=== PATIENT | male | born 1980 | race Caucasian/White ===

== ENCOUNTER 2016-09-16 08:24 | Emergency (ER) | payer MEDICAID, OTHER ==
[~2016-09-16 08:24] MED LIST: PERC5TAB8 PO; SOMA350T OR
[2016-09-16] MEDS ORDERED: SUCRALFATE 1 GM TAB As Ordered ONE (09:22)
[2016-09-16] MEDS ORDERED: METOCLOPRAMIDE INJ 10MG/2ML VIAL (J2765) As Ordered ONE (09:22)
[2016-09-16] MEDS ORDERED: PANTOPRAZOLE 40MG INJ (PROTONIX) (C9113) As Ordered ONE (09:22)
[2016-09-16] MEDS ORDERED: ONDANSETRON 4MG/2ML VIAL (J2405) As Ordered ONE (09:22)
[2016-09-16] MEDS ORDERED: KETOROLAC 30 MG/ML VIAL (J1885) As Ordered ONE (09:22)
--- NOTE | 2016-09-16 11:23 | EDDOCDS ---
Nurse's Notes [facility] Name: José Oliva Age: 36 yrs Sex: Male : 1980 Arrival Date: 09/16/2016 Time: 08:24 Bed 11 Private MD: Diagnosis: Poisoning by heroin, accidental (unintentional) Presentation: 09/16 08:26 Presenting complaint: EMS states: PD found pt blue and girlfriend attempting to arouse pml pt without effect. EMS found agonal respirations and give 0.8 narcan IVP with positive effect. pt became agitated and combative following narcan administration and PD restrained pt in handcuffs. pt not under police custody. pt admits to use of heroin and "speed" - cocaine and some other substance. Adult Sepsis Screening: The patient does not have new or worsening altered mentation. Patient's respiratory rate is less than 22. Systolic blood pressure is greater than 100. Patient has a qSOFA score of 0- Negative Sepsis Screen. Suicide/Homicide risk assessment- the patient denies having any suicidal and/or homicidal ideations and does not present with any other emotional, behavioral or mental health complaints. Status: Patient is not a septic tank servicer or dependent. Transition of care: patient was not received from another setting of care. 08:26 Acuity: JEREMY Level 3 pml 08:26 Method Of Arrival: Ambulance pml Triage Assessment: 08:33 General: Appears ill, Behavior is appropriate for age, cooperative. Pain: Denies pain. pml HIV screening NA for this visit Offered previously. The patient is triaged at the bedside. See Assessment in Nurses Notes section of ED record. Neurological: Level of Consciousness is awake, alert, Oriented to person, place, time. Cardiovascular: Capillary refill < 3 seconds. Respiratory: Airway is patent Respiratory effort is even, unlabored. GI: Abdomen is non- distended Pt is actively vomiting bile, Abd is soft X 4 quads Reports indigestion. Derm: Skin is diaphoretic, Skin is pale, Skin temperature is warm. Historical: - Allergies: no known allergies; - Home Meds: 1. none - PMHx: none; - PSHx: Tonsillectomy; back surgery; - Social history: Smoking status: Patient uses tobacco products, light tobacco smoker. Patient uses street drugs, cocaine, heroin, No barriers to communication noted, The patient speaks fluent South Korean, Speaks appropriately for age. - Family history: Not pertinent. - : The pt / caregiver states he / she is not on anticoagulants. Home medication list is obtained from the patient. - Exposure Risk Screening:: None identified. Screenin:38 Screening information is obtained from the patient. Fall risk: No risks identified. pml Assistance ADL's: requires no assistance with activities of daily living. Abuse/DV Screen: The patient / caregiver reports he/she is: not in a situation that causes fear, pain or injury. Nutritional screening: No deficits noted. Advance Directives: Currently, there is no health care proxy. home support is adequate. Assessment: 09:30 GI: Pt is actively vomiting bile. pml 09:49 General: Appears in no apparent distress, Behavior is appropriate for age, cooperative. pml Pain: Denies pain. Neurological: Level of Consciousness is awake, alert, Oriented to person, place, time. Cardiovascular: Capillary refill < 3 seconds. Respiratory: Airway is patent Respiratory effort is even, unlabored. GI: Abdomen is non- distended Reports nausea is improved. encouraged to attempt crackers and gingerale in small sips. Derm: Skin is pink, warm & dry. 11:00 General: tolerating sips of PO fluids. pml 11:15 General: In to room - pt has removed IV and is dressed, requesting to be discharged, MD jessica Sumner aware. 11:21 General: Appears in no apparent distress, Behavior is appropriate for age, cooperative. pml Pain: Denies pain. Neurological: Level of Consciousness is awake, alert, Oriented to person, place, time. Cardiovascular: Capillary refill < 3 seconds. Respiratory: Airway is patent Respiratory effort is even, unlabored. Derm: Skin is pink, warm & dry. Social Work Consult: 10:44 Social Work Note: Pt declines referrals for drug treatment, says he has an appt on 09/21 ca with [facility]. SO at bedside and is able to take pt home. Vital Signs: 08:36 BP 121 / 76 (auto/); pml 08:38 Pulse 96 MON; Pulse Ox 95% ; pml 08:40 BP 121 / 76 RA Sitting (auto/reg); Pulse 93; Resp 16; Temp 96.3; Pulse Ox 94% on R/A; jrd Weight 81.65 kg; Height 5 ft. 9 in. (175.26 cm); 09:35 BP 99 / 62 (auto/); pml 09:37 Pulse 68 MON; Pulse Ox 96% ; pml 09:55 Pulse 76 MON; Pulse Ox 98% ; pml 09:55 BP 108 / 67 (auto/); pml 10:05 Pulse 66 MON; Pulse Ox 100% ; pml 10:05 BP 103 / 59 (auto/); pml 10:16 Pulse 82 MON; Pulse Ox 99% ; pml 10:20 BP 109 / 65 (auto/); pml 11:21 BP 116 / 68; Pulse 89; Resp 18; Temp 97.4; Pulse Ox 99% ; pml 08:40 Body Mass Index 26.58 (81.65 kg, 175.26 cm) jrd Vitals: 11:22 Log In Time N/A - ambulance arrival. pml ED Course: 08:25 Patient visited by Makenzie Villanueva, Pricing Director. deg 08:25 Patient moved to Waiting deg 08:25 Patient moved to 11 deg 08:27 Sharron Meza MD is Attending Physician. sd1 08:30 Triage Initiated pml 08:35 Patient visited by Kisha Quiroz,KETTY. pml 08:38 The patient / caregiver is instructed regarding the plan of care and ED course. Patient pml has correct armband on for positive identification. Placed in gown. Bed in low position. Call light in reach. Side rails up X2. 08:38 Maintain field IV. Dressing intact. Good blood return noted. Site clean & dry. Gauge & pml site: 18g right forearm. 08:41 Patient visited by Donny Sanchez PCA. jrd 09:01 Patient visited by Sharron Meza MD. sd1 09:52 Patient visited by Kisha Quiroz,KETTY. pml 10:27 ON LICENSE OF [facility] Payment Agreement was scanned into [employer] and attached to record. mm15 11:15 Patient visited by Theresa Moses PCA. jb5 11:15 Referral list, As provided by PFS is Referral Physician. sd1 11:21 Discontinued lock intact, bleeding controlled, pressure dressing applied, No pml redness/swelling at site. No procedures done that require assistance. Administered Medications: 09:18 CANCELLED (Other Intervention Used): Ondansetron 4 mg IVP once sd1 09:30 Drug: NS 0.9% 1000 ml [sodium chloride 0.9 % injection solution] Route: IV; Rate: dy bolus; Site: right antecubital; 11:21 Follow up: IV Status: Completed infusion; IV Intake: 1000ml pml 09:32 Drug: pantoprazole 40 mg [pantoprazole 40 mg intravenous solution] Route: IV; Rate: dy bolus; Site: right antecubital; 09:34 Drug: ketorolac 30 mg [ketorolac 30 mg/mL (1 mL) injection solution (1 mL)] Route: IVP; dy Site: right antecubital; 09:36 Drug: Ondansetron 4 mg [ondansetron HCl 2 mg/mL intravenous solution (2 mL)] Route: dy IVP; Site: right antecubital; 09:37 Drug: Sucralfate 1 grams [sucralfate 1 gram tablet (1 tabs)] Route: PO; dy 09:37 Drug: Metoclopramide 10 mg [metoclopramide 5 mg/mL injection solution] Route: IV; Rate: dy 40 mg/hr; Infused Over: 15 mins; Site: right antecubital; Intake: 11:21 IV: 1000.00ml; Total: 1000.00ml. pml Order Results: There are currently no results for this order. Outcome: 11:15 Discharge ordered by Provider. sd1 11:21 Discharge Assessment: Patient awake, alert and oriented x 3. No cognitive and/or pml functional deficits noted. Patient verbalized understanding of disposition instructions. patient administered narcotics - no. The following High Risk Discharge criteria are identified: None. Discharged to home ambulatory. Condition: good Condition: stable. Discharge instructions given to patient, Instructed on discharge instructions, follow up and referral plans. Demonstrated understanding of instructions, Pt was receptive of discharge instructions/ teaching. No special radiology studies were completed. Property sent home with patient. 11:23 Patient left the ED. pml Signatures: Sharron Meza MD MD sd1 Makenzie Villanueva, Pricing Director Unit deg Radha Whitfield, PSA PSA John Blanco RN RN dy Baker, Janet, GROUND HOST/HOSTESS GROUND HOST/HOSTESS jb5 Kisha Quiroz RN RN pml Cassie Aguirre mm15 Donny Sanchez, GROUND HOST/HOSTESS GROUND HOST/HOSTESS jrd MTDD
--- NOTE | 2016-09-16 11:23 | EDDOCDS ---
Physician Documentation [facility] Name: José Oliva Age: 36 yrs Sex: Male : 1980 Arrival Date: 09/16/2016 Time: 08:24 Bed 11 Private MD: Disposition: 09/16/16 11:15 Discharged to Home/Self Care. Impression: Poisoning by heroin, accidental (unintentional). - Condition is Stable. - Discharge Instructions: Polysubstance Abuse. - Medication Reconciliation, Local Pharmacy Hours form. - Follow up: Referral list, As provided by PFS; When: Call to arrange an appointment. - Problem is new. - Symptoms are resolved. Historical: - Allergies: no known allergies; - Home Meds: 1. none - PMHx: none; - PSHx: Tonsillectomy; back surgery; - Social history: Smoking status: Patient uses tobacco products, light tobacco smoker. Patient uses street drugs, cocaine, heroin, No barriers to communication noted, The patient speaks fluent Nepali, Speaks appropriately for age. - Family history: Not pertinent. - : The pt / caregiver states he / she is not on anticoagulants. Home medication list is obtained from the patient. - Exposure Risk Screening:: None identified. Vital Signs: 09/16 08:36 BP 121 / 76 (auto/); pml 08:38 Pulse 96 MON; Pulse Ox 95% ; pml 08:40 BP 121 / 76 RA Sitting (auto/reg); Pulse 93; Resp 16; Temp 96.3; Pulse Ox 94% on R/A; jrd Weight 81.65 kg / 180.01 lbs; Height 5 ft. 9 in. (175.26 cm); 09:35 BP 99 / 62 (auto/); pml 09:37 Pulse 68 MON; Pulse Ox 96% ; pml 09:55 Pulse 76 MON; Pulse Ox 98% ; pml 09:55 BP 108 / 67 (auto/); pml 10:05 Pulse 66 MON; Pulse Ox 100% ; pml 10:05 BP 103 / 59 (auto/); pml 10:16 Pulse 82 MON; Pulse Ox 99% ; pml 10:20 BP 109 / 65 (auto/); pml 11:21 BP 116 / 68; Pulse 89; Resp 18; Temp 97.4; Pulse Ox 99% ; pml 08:40 Body Mass Index 26.58 (81.65 kg, 175.26 cm) jrd MDM: 09:03 NS 0.9% 1000 ml IV at bolus once ordered. sd1 09:03 pantoprazole 40 mg IV at bolus once ordered. sd1 09:13 Sucralfate 1 grams PO once ordered. sd1 09:14 Consult: Line Mechanic ordered. sd1 09:19 Metoclopramide 10 mg IV at 40 mg/hr once over 15 mins ordered. sd1 09:19 ketorolac 30 mg IVP once ordered. sd1 09:19 Ondansetron 4 mg IVP once ordered. sd1 10:24 Financial registration complete. mm15 10:27 [facility] Payment Agreement was scanned into [employer] and attached to record. mm15 10:39 Consult: Line Mechanic complete. ca 10:41 Fluid Challenge ordered. sd1 Administered Medications: 09:18 CANCELLED (Other Intervention Used): Ondansetron 4 mg IVP once sd1 09:30 Drug: NS 0.9% 1000 ml [sodium chloride 0.9 % injection solution] Route: IV; Rate: dy bolus; Site: right antecubital; 11:21 Follow up: IV Status: Completed infusion; IV Intake: 1000ml pml 09:32 Drug: pantoprazole 40 mg [pantoprazole 40 mg intravenous solution] Route: IV; Rate: dy bolus; Site: right antecubital; 09:34 Drug: ketorolac 30 mg [ketorolac 30 mg/mL (1 mL) injection solution (1 mL)] Route: IVP; dy Site: right antecubital; 09:36 Drug: Ondansetron 4 mg [ondansetron HCl 2 mg/mL intravenous solution (2 mL)] Route: dy IVP; Site: right antecubital; 09:37 Drug: Sucralfate 1 grams [sucralfate 1 gram tablet (1 tabs)] Route: PO; dy 09:37 Drug: Metoclopramide 10 mg [metoclopramide 5 mg/mL injection solution] Route: IV; Rate: dy 40 mg/hr; Infused Over: 15 mins; Site: right antecubital; Signatures: Sharron Meza MD MD sd1 Radha Whitfield, PSA PSA Kisha Patel RN RN pml Cassie Aguirre mm15 John Núñez RN The chart was reviewed and I authenticate all verbal orders and agree with the evaluation and treatment provided.Corrections: (The following items were deleted from the chart) 09:18 09:03 Ondansetron 4 mg IVP once ordered. sd1 sd1 Attachments: 10:27 [facility] Payment Agreement mm15 MTDD
--- NOTE | 2016-09-18 12:23 | EDDOCDS ---
Physician Documentation [facility] Name: José Oliva Age: 36 yrs Sex: Male : 1980 Arrival Date: 09/16/2016 Time: 08:24 Bed 11 Private MD: Disposition: 09/16/16 11:15 Discharged to Home/Self Care. Impression: Poisoning by heroin, accidental (unintentional). - Condition is Stable. - Discharge Instructions: Polysubstance Abuse. - Medication Reconciliation, Local Pharmacy Hours form. - Follow up: Referral list, As provided by PFS; When: Call to arrange an appointment. - Problem is new. - Symptoms are resolved. Historical: - Allergies: no known allergies; - Home Meds: 1. none - PMHx: none; - PSHx: Tonsillectomy; back surgery; - Social history: Smoking status: Patient uses tobacco products, light tobacco smoker. Patient uses street drugs, cocaine, heroin, No barriers to communication noted, The patient speaks fluent Luxembourgish, Speaks appropriately for age. - Family history: Not pertinent. - : The pt / caregiver states he / she is not on anticoagulants. Home medication list is obtained from the patient. - Exposure Risk Screening:: None identified. Vital Signs: 09/16 08:36 BP 121 / 76 (auto/); pml 08:38 Pulse 96 MON; Pulse Ox 95% ; pml 08:40 BP 121 / 76 RA Sitting (auto/reg); Pulse 93; Resp 16; Temp 96.3; Pulse Ox 94% on R/A; jrd Weight 81.65 kg / 180.01 lbs; Height 5 ft. 9 in. (175.26 cm); 09:35 BP 99 / 62 (auto/); pml 09:37 Pulse 68 MON; Pulse Ox 96% ; pml 09:55 Pulse 76 MON; Pulse Ox 98% ; pml 09:55 BP 108 / 67 (auto/); pml 10:05 Pulse 66 MON; Pulse Ox 100% ; pml 10:05 BP 103 / 59 (auto/); pml 10:16 Pulse 82 MON; Pulse Ox 99% ; pml 10:20 BP 109 / 65 (auto/); pml 11:21 BP 116 / 68; Pulse 89; Resp 18; Temp 97.4; Pulse Ox 99% ; pml 08:40 Body Mass Index 26.58 (81.65 kg, 175.26 cm) jrd MDM: 09:03 NS 0.9% 1000 ml IV at bolus once ordered. sd1 09:03 pantoprazole 40 mg IV at bolus once ordered. sd1 09:13 Sucralfate 1 grams PO once ordered. sd1 09:14 Consult: Jack Strip Assembler ordered. sd1 09:19 Metoclopramide 10 mg IV at 40 mg/hr once over 15 mins ordered. sd1 09:19 ketorolac 30 mg IVP once ordered. sd1 09:19 Ondansetron 4 mg IVP once ordered. sd1 10:24 Financial registration complete. mm15 10:27 [facility] [place] Agreement was scanned into [employer] and attached to record. mm15 10:39 Consult: Jack Strip Assembler complete. ca 10:41 Fluid Challenge ordered. sd1 16:56 T-Sheet-- Draft Copy was scanned into [employer] and attached to record. klr Administered Medications: 09:18 CANCELLED (Other Intervention Used): Ondansetron 4 mg IVP once sd1 09:30 Drug: NS 0.9% 1000 ml [sodium chloride 0.9 % injection solution] Route: IV; Rate: dy bolus; Site: right antecubital; 11:21 Follow up: IV Status: Completed infusion; IV Intake: 1000ml pml 09:32 Drug: pantoprazole 40 mg [pantoprazole 40 mg intravenous solution] Route: IV; Rate: dy bolus; Site: right antecubital; 09:34 Drug: ketorolac 30 mg [ketorolac 30 mg/mL (1 mL) injection solution (1 mL)] Route: IVP; dy Site: right antecubital; 09:36 Drug: Ondansetron 4 mg [ondansetron HCl 2 mg/mL intravenous solution (2 mL)] Route: dy IVP; Site: right antecubital; 09:37 Drug: Sucralfate 1 grams [sucralfate 1 gram tablet (1 tabs)] Route: PO; dy 09:37 Drug: Metoclopramide 10 mg [metoclopramide 5 mg/mL injection solution] Route: IV; Rate: dy 40 mg/hr; Infused Over: 15 mins; Site: right antecubital; Signatures: Sharron Meza MD MD sd1 Rahda Whitfield PSA PSA ca QuayKisha,RN RN pml Cassie Aguirre mm15 Silvia Sam David RN dy The chart was reviewed and I authenticate all verbal orders and agree with the evaluation and treatment provided.Corrections: (The following items were deleted from the chart) 09:18 09:03 Ondansetron 4 mg IVP once ordered. sd1 sd1 Attachments: 10:27 [facility] [place] Agreement mm15 16:56 T-Sheet-- Draft Copy klr Chart Complete MTDD
--- NOTE | 2016-09-18 12:23 | EDDOCDS ---
Physician Documentation [facility] Name: José Oliva Age: 36 yrs Sex: Male : 1980 Arrival Date: 09/16/2016 Time: 08:24 Bed 11 Private MD: Disposition: 09/16/16 11:15 Discharged to Home/Self Care. Impression: Poisoning by heroin, accidental (unintentional). - Condition is Stable. - Discharge Instructions: Polysubstance Abuse. - Medication Reconciliation, Local Pharmacy Hours form. - Follow up: Referral list, As provided by PFS; When: Call to arrange an appointment. - Problem is new. - Symptoms are resolved. Historical: - Allergies: no known allergies; - Home Meds: 1. none - PMHx: none; - PSHx: Tonsillectomy; back surgery; - Social history: Smoking status: Patient uses tobacco products, light tobacco smoker. Patient uses street drugs, cocaine, heroin, No barriers to communication noted, The patient speaks fluent Czech, Speaks appropriately for age. - Family history: Not pertinent. - : The pt / caregiver states he / she is not on anticoagulants. Home medication list is obtained from the patient. - Exposure Risk Screening:: None identified. Vital Signs: 09/16 08:36 BP 121 / 76 (auto/); pml 08:38 Pulse 96 MON; Pulse Ox 95% ; pml 08:40 BP 121 / 76 RA Sitting (auto/reg); Pulse 93; Resp 16; Temp 96.3; Pulse Ox 94% on R/A; jrd Weight 81.65 kg / 180.01 lbs; Height 5 ft. 9 in. (175.26 cm); 09:35 BP 99 / 62 (auto/); pml 09:37 Pulse 68 MON; Pulse Ox 96% ; pml 09:55 Pulse 76 MON; Pulse Ox 98% ; pml 09:55 BP 108 / 67 (auto/); pml 10:05 Pulse 66 MON; Pulse Ox 100% ; pml 10:05 BP 103 / 59 (auto/); pml 10:16 Pulse 82 MON; Pulse Ox 99% ; pml 10:20 BP 109 / 65 (auto/); pml 11:21 BP 116 / 68; Pulse 89; Resp 18; Temp 97.4; Pulse Ox 99% ; pml 08:40 Body Mass Index 26.58 (81.65 kg, 175.26 cm) jrd MDM: 09:03 NS 0.9% 1000 ml IV at bolus once ordered. sd1 09:03 pantoprazole 40 mg IV at bolus once ordered. sd1 09:13 Sucralfate 1 grams PO once ordered. sd1 09:14 Consult: Tooling Supervisor ordered. sd1 09:19 Metoclopramide 10 mg IV at 40 mg/hr once over 15 mins ordered. sd1 09:19 ketorolac 30 mg IVP once ordered. sd1 09:19 Ondansetron 4 mg IVP once ordered. sd1 10:24 Financial registration complete. mm15 10:27 [facility] [place] was scanned into [employer] and attached to record. mm15 10:39 Consult: Tooling Supervisor complete. ca 10:41 Fluid Challenge ordered. sd1 16:56 T-Sheet-- Draft Copy was scanned into [employer] and attached to record. klr Administered Medications: 09:18 CANCELLED (Other Intervention Used): Ondansetron 4 mg IVP once sd1 09:30 Drug: NS 0.9% 1000 ml [sodium chloride 0.9 % injection solution] Route: IV; Rate: dy bolus; Site: right antecubital; 11:21 Follow up: IV Status: Completed infusion; IV Intake: 1000ml pml 09:32 Drug: pantoprazole 40 mg [pantoprazole 40 mg intravenous solution] Route: IV; Rate: dy bolus; Site: right antecubital; 09:34 Drug: ketorolac 30 mg [ketorolac 30 mg/mL (1 mL) injection solution (1 mL)] Route: IVP; dy Site: right antecubital; 09:36 Drug: Ondansetron 4 mg [ondansetron HCl 2 mg/mL intravenous solution (2 mL)] Route: dy IVP; Site: right antecubital; 09:37 Drug: Sucralfate 1 grams [sucralfate 1 gram tablet (1 tabs)] Route: PO; dy 09:37 Drug: Metoclopramide 10 mg [metoclopramide 5 mg/mL injection solution] Route: IV; Rate: dy 40 mg/hr; Infused Over: 15 mins; Site: right antecubital; Signatures: Sharron Meza MD MD sd1 Radha Whitfield PSA PSA ca QuayKisha,RN RN pml Cassie Aguirre mm15 Silvia Sam David RN dy The chart was reviewed and I authenticate all verbal orders and agree with the evaluation and treatment provided.Corrections: (The following items were deleted from the chart) 09:18 09:03 Ondansetron 4 mg IVP once ordered. sd1 sd1 Attachments: 10:27 [facility] [place] mm15 16:56 T-Sheet-- Draft Copy klr Chart Complete MTDD
--- NOTE | 2016-09-18 12:23 | EDDOCDS ---
Nurse's Notes [facility] Name: José Oliva Age: 36 yrs Sex: Male : 1980 Arrival Date: 09/16/2016 Time: 08:24 Bed 11 Private MD: Diagnosis: Poisoning by heroin, accidental (unintentional) Presentation: 09/16 08:26 Presenting complaint: EMS states: PD found pt blue and girlfriend attempting to arouse pml pt without effect. EMS found agonal respirations and give 0.8 narcan IVP with positive effect. pt became agitated and combative following narcan administration and PD restrained pt in handcuffs. pt not under police custody. pt admits to use of heroin and "speed" - cocaine and some other substance. Adult Sepsis Screening: The patient does not have new or worsening altered mentation. Patient's respiratory rate is less than 22. Systolic blood pressure is greater than 100. Patient has a qSOFA score of 0- Negative Sepsis Screen. Suicide/Homicide risk assessment- the patient denies having any suicidal and/or homicidal ideations and does not present with any other emotional, behavioral or mental health complaints. Status: Patient is not a car servicer or dependent. Transition of care: patient was not received from another setting of care. 08:26 Acuity: JEREMY Level 3 pml 08:26 Method Of Arrival: Ambulance pml Triage Assessment: 08:33 General: Appears ill, Behavior is appropriate for age, cooperative. Pain: Denies pain. pml HIV screening NA for this visit Offered previously. The patient is triaged at the bedside. See Assessment in Nurses Notes section of ED record. Neurological: Level of Consciousness is awake, alert, Oriented to person, place, time. Cardiovascular: Capillary refill < 3 seconds. Respiratory: Airway is patent Respiratory effort is even, unlabored. GI: Abdomen is non- distended Pt is actively vomiting bile, Abd is soft X 4 quads Reports indigestion. Derm: Skin is diaphoretic, Skin is pale, Skin temperature is warm. Historical: - Allergies: no known allergies; - Home Meds: 1. none - PMHx: none; - PSHx: Tonsillectomy; back surgery; - Social history: Smoking status: Patient uses tobacco products, light tobacco smoker. Patient uses street drugs, cocaine, heroin, No barriers to communication noted, The patient speaks fluent Maltese, Speaks appropriately for age. - Family history: Not pertinent. - : The pt / caregiver states he / she is not on anticoagulants. Home medication list is obtained from the patient. - Exposure Risk Screening:: None identified. Screenin:38 Screening information is obtained from the patient. Fall risk: No risks identified. pml Assistance ADL's: requires no assistance with activities of daily living. Abuse/DV Screen: The patient / caregiver reports he/she is: not in a situation that causes fear, pain or injury. Nutritional screening: No deficits noted. Advance Directives: Currently, there is no health care proxy. home support is adequate. Assessment: 09:30 GI: Pt is actively vomiting bile. pml 09:49 General: Appears in no apparent distress, Behavior is appropriate for age, cooperative. pml Pain: Denies pain. Neurological: Level of Consciousness is awake, alert, Oriented to person, place, time. Cardiovascular: Capillary refill < 3 seconds. Respiratory: Airway is patent Respiratory effort is even, unlabored. GI: Abdomen is non- distended Reports nausea is improved. encouraged to attempt crackers and gingerale in small sips. Derm: Skin is pink, warm & dry. 11:00 General: tolerating sips of PO fluids. pml 11:15 General: In to room - pt has removed IV and is dressed, requesting to be discharged, MD jessica Sumner aware. 11:21 General: Appears in no apparent distress, Behavior is appropriate for age, cooperative. pml Pain: Denies pain. Neurological: Level of Consciousness is awake, alert, Oriented to person, place, time. Cardiovascular: Capillary refill < 3 seconds. Respiratory: Airway is patent Respiratory effort is even, unlabored. Derm: Skin is pink, warm & dry. Social Work Consult: 10:44 Social Work Note: Pt declines referrals for drug treatment, says he has an appt on 09/21 ca with [facility]. SO at bedside and is able to take pt home. Vital Signs: 08:36 BP 121 / 76 (auto/); pml 08:38 Pulse 96 MON; Pulse Ox 95% ; pml 08:40 BP 121 / 76 RA Sitting (auto/reg); Pulse 93; Resp 16; Temp 96.3; Pulse Ox 94% on R/A; jrd Weight 81.65 kg; Height 5 ft. 9 in. (175.26 cm); 09:35 BP 99 / 62 (auto/); pml 09:37 Pulse 68 MON; Pulse Ox 96% ; pml 09:55 Pulse 76 MON; Pulse Ox 98% ; pml 09:55 BP 108 / 67 (auto/); pml 10:05 Pulse 66 MON; Pulse Ox 100% ; pml 10:05 BP 103 / 59 (auto/); pml 10:16 Pulse 82 MON; Pulse Ox 99% ; pml 10:20 BP 109 / 65 (auto/); pml 11:21 BP 116 / 68; Pulse 89; Resp 18; Temp 97.4; Pulse Ox 99% ; pml 08:40 Body Mass Index 26.58 (81.65 kg, 175.26 cm) jrd Vitals: 11:22 Log In Time N/A - ambulance arrival. pml ED Course: 08:25 Patient visited by Makenzie Villanueva, Chancellor. deg 08:25 Patient moved to Waiting deg 08:25 Patient moved to 11 deg 08:27 Sharron Meza MD is Attending Physician. sd1 08:30 Triage Initiated pml 08:35 Patient visited by Kisha Quiroz,KETTY. pml 08:38 The patient / caregiver is instructed regarding the plan of care and ED course. Patient pml has correct armband on for positive identification. Placed in gown. Bed in low position. Call light in reach. Side rails up X2. 08:38 Maintain field IV. Dressing intact. Good blood return noted. Site clean & dry. Gauge & pml site: 18g right forearm. 08:41 Patient visited by Donny Sanchez PCA. jrd 09:01 Patient visited by Sharron Meza MD. sd1 09:52 Patient visited by Kisha Quiroz,KETTY. pml 10:27 [facility] Payment Agreement was scanned into Death by Party and attached to record. [id number] 11:15 Patient visited by Theresa Moses PCA. jb5 11:15 Referral list, As provided by [facility] is Referral Physician. sd1 11:21 Discontinued lock intact, bleeding controlled, pressure dressing applied, No pml redness/swelling at site. No procedures done that require assistance. 16:56 T-Sheet-- Draft Copy was scanned into Death by Party and attached to record. klr Administered Medications: 09:18 CANCELLED (Other Intervention Used): Ondansetron 4 mg IVP once sd1 09:30 Drug: NS 0.9% 1000 ml [sodium chloride 0.9 % injection solution] Route: IV; Rate: dy bolus; Site: right antecubital; 11:21 Follow up: IV Status: Completed infusion; IV Intake: 1000ml pml 09:32 Drug: pantoprazole 40 mg [pantoprazole 40 mg intravenous solution] Route: IV; Rate: dy bolus; Site: right antecubital; 09:34 Drug: ketorolac 30 mg [ketorolac 30 mg/mL (1 mL) injection solution (1 mL)] Route: IVP; dy Site: right antecubital; 09:36 Drug: Ondansetron 4 mg [ondansetron HCl 2 mg/mL intravenous solution (2 mL)] Route: dy IVP; Site: right antecubital; 09:37 Drug: Sucralfate 1 grams [sucralfate 1 gram tablet (1 tabs)] Route: PO; dy 09:37 Drug: Metoclopramide 10 mg [metoclopramide 5 mg/mL injection solution] Route: IV; Rate: dy 40 mg/hr; Infused Over: 15 mins; Site: right antecubital; Intake: 11:21 IV: 1000.00ml; Total: 1000.00ml. pml Order Results: There are currently no results for this order. Outcome: 11:15 Discharge ordered by Provider. sd1 11:21 Discharge Assessment: Patient awake, alert and oriented x 3. No cognitive and/or pml functional deficits noted. Patient verbalized understanding of disposition instructions. patient administered narcotics - no. The following High Risk Discharge criteria are identified: None. Discharged to home ambulatory. Condition: good Condition: stable. Discharge instructions given to patient, Instructed on discharge instructions, follow up and referral plans. Demonstrated understanding of instructions, Pt was receptive of discharge instructions/ teaching. No special radiology studies were completed. Property sent home with patient. 11:23 Patient left the ED. pml Signatures: Sharron Meza MD MD sd1 Makenzie Villanueva, Chancellor Unit deg Radha Whitfield, PSA PSA John Blanco RN RN dy Baker, Janet, DARELL CRABBER jb5 Kisha Quiroz RN RN pml McGrath, Marlynn mm15 Donny Sanchez, CRABBER CRABBER jrd Silvia Sam Chart Complete MTDD
== END 2016-09-16 11:23 | disposition home or self-care (01) ==
LOC: M ED 08:24
DX: F11.10 Opioid abuse, uncomplicated (principal); Z72.0 Tobacco use
CPT/HCPCS: 96361; 96374; 96375; 99283; C9113; J1885; J2405; J2765

== ENCOUNTER 2019-02-12 12:05 | Emergency (ER) | payer MEDICAID ==
[~2019-02-12] VITALS: Ht 175.3 cm; Wt 95.5 kg
[2019-02-12 12:39] VITALS: BP 136/88
[2019-02-12] MEDS ORDERED: SUBO8MIS (12:39)
[2019-02-12 13:40] LABS: HEMATOCRIT 44.7 % (42.0-52.0); HEMOGLOBIN 15.2 g/dl (13.5-17.5); MEAN CORPUSCULAR VOLUME 88.2 fl (80.0-96.0); PLATELET COUNT, AUTOMATED 290 10^3/uL (150-450); RED BLOOD COUNT 5.07 10^6/uL (4.30-6.10); WHITE BLOOD COUNT 16.1 10^3/uL (4.0-10.0)
[2019-02-12 14:18] LABS: ACETAMINOPHEN LEVEL < 2.0 UG/ML (10.0-30.0); ALBUMIN 4.4 GM/DL (3.2-5.2); ALT/SGPT 20 U/L (12-78); BILIRUBIN,DIRECT 0.2 MG/DL (0.0-0.2); BILIRUBIN,TOTAL 0.6 MG/DL (0.2-1.0); BLOOD UREA NITROGEN 27 MG/DL (7-18); CALCIUM LEVEL 9.4 MG/DL (8.5-10.1); CARBON DIOXIDE LEVEL 25 MEQ/L (21-32); CHLORIDE LEVEL 106 MEQ/L (98-107); CPK CREATINE PHOSPHOKINASE 556 U/L (39-308); CREATININE FOR GFR 0.77 MG/DL (0.70-1.30); ETHYL ALCOHOL (ETHANOL) < 0.003 % (0.000-0.010); GLOMERULAR FILTRATION RATE > 60.0 (>60); GLUCOSE, FASTING 94 MG/DL (70-100); POTASSIUM SERUM 3.8 MEQ/L (3.5-5.1); SALICYLATE LEVEL 2.9 MG/DL (5.0-30.0); SODIUM LEVEL 141 MEQ/L (136-145); THYROID STIMULATING HORMONE 0.603 uIU/ML (0.358-3.740); TOTAL PROTEIN 7.6 GM/DL (6.4-8.2)
[2019-02-12] MEDS ORDERED: BUPRENORPHINE/NALOXONE 8-2MG SUBLINGUAL TABLET(SUBOXONE) SL ONE (16:15)
[2019-02-12] MEDS ORDERED: CEPHALEXIN 500 MG CAP PO ONE (16:15)
[2019-02-12] MEDS ORDERED: KEFL500C17 PO (16:49)
--- NOTE | 2019-02-13 06:03 | ECGEPIP ---
[facility] - ED Test Date: 2019-02-12 Pat Name: TONI CAMPOS Department: Room: - Gender: Male Order Fulfillment Specialist: : 1980 Requested By: Sharron Meza Order Number: [id number] Reading MD: Franki Campbell Measurements Intervals [place] Rate: 97 P: 55 MD: 157 QRS: 40 QRSD: 94 T: 29 QT: 342 QTc: 436 Interpretive Statements SINUS RHYTHM NO PRIORS FOR COMPARISON Electronically Signed on 02-13-2019 6:02:54 EDT by Franki Campbell
== END 2019-02-12 17:42 | disposition home or self-care (01) ==
LOC: M ED 12:05
DX: F19.10 Other psychoactive substance abuse, uncomplicated (principal); S61.432A Puncture wound without foreign body of left hand, initial encounter; L08.9 Local infection of the skin and subcutaneous tissue, unspecified; W22.09XA Striking against other stationary object, initial encounter; Y92.89 Other specified places as the place of occurrence of the external cause; M54.9 Dorsalgia, unspecified; F17.200 Nicotine dependence, unspecified, uncomplicated; Z79.899 Other long term (current) drug therapy
CPT/HCPCS: 36415; 80048; 80076; 82550; 84443; 85027; 93005; 99284; G0480

== ENCOUNTER 2019-06-18 20:25 | Emergency (ER) | payer MEDICAID, OTHER ==
[~2019-06-18] VITALS: Ht 175.3 cm; Wt 90.9 kg
[~2019-06-18 20:25] MED LIST changes: +KEFL500C17 PO; +SUBO8MIS
[2019-06-18 20:26] VITALS: BP 174/99
[2019-06-18] MEDS ORDERED: BACT800T5 PO (21:28)
== END 2019-06-18 21:40 | disposition home or self-care (01) ==
LOC: M ED 20:25
DX: L08.9 Local infection of the skin and subcutaneous tissue, unspecified (principal); I10 Essential (primary) hypertension; F41.9 Anxiety disorder, unspecified; F19.10 Other psychoactive substance abuse, uncomplicated; Z87.891 Personal history of nicotine dependence; Z79.899 Other long term (current) drug therapy

== ENCOUNTER 2022-03-18 21:04 | Emergency (ER) | payer MEDICAID, OTHER ==
[~2022-03-18] VITALS: Ht 175.3 cm; Wt 117.6 kg
[2022-03-18 21:04] VITALS: BP 146/68
[~2022-03-18 21:04] MED LIST changes: +BACT800T5 PO
== END 2022-03-19 00:32 | disposition left against medical advice (07) ==
LOC: M ED 21:04
DX: Z53.21 Procedure and treatment not carried out due to patient leaving prior to being seen by health care provider (principal)